=== PATIENT | male | born 1955 | race American Indian/Alaskan Native ===

== ENCOUNTER 2017-01-29 06:03 | Day surgery (SDC) | payer OTHER ==
[2017-01-29] MEDS ORDERED: WATER FOR IRRIG STERILE IR ONE ×2 (07:16→07:24)
[2017-01-29] MEDS ORDERED: WATER FOR IRRIG STERILE ONE (07:16)
--- NOTE | 2017-01-29 07:53 | Anesthesia Day of Surgery ---
Anesthesia Day of Surgery - Day of Surgery Patient Examined: Yes Patient H&P Reviewed: Yes Patient is NPO: Yes
[2017-01-29] MEDS ORDERED: DIPRIVAN 10 MG/ML IV ONE ×4 (07:56)
--- NOTE | 2017-01-29 07:56 | Anesthesia Consultation ---
Anesthesia Consult and Med Hx Date of service: 01/29/17 - Airway Anesthetic Teeth Evaluation: Poor (missing and chipped teeth) ROM Head & Neck: Adequate Mental/Hyoid Distance: Adequate Mallampati Class: Class II Intubation Access Assessment: Probably Good - Pulmonary Exam CTA: Yes - Cardiac Exam Cardiac Exam: RRR - Pre-Operative Health Status ASA Pre-Surgery Classification: ASA4 Proposed Anesthetic Plan: General - Pulmonary Hx Smoking: No Hx Asthma: No (sinus ) Hx Sleep Apnea: No - Cardiovascular System Hx Hypertension: Yes Hx Heart Attack/AMI: No Hx Percutaneous Transluminal Coronary Angioplasty (PTCA): No - Central Nervous System Hx Seizures: No CVA: No Hx Back Pain: Yes (lumbar degenerative disc) Hx Psychiatric Problems: Yes - Gastrointestinal Hx Gastroesophageal Reflux Disease: No - Endocrine Hx Renal Disease: No Hx Cirrhosis: Yes Hx Liver Disease: Yes (liver ca, hep C) Hx Hypothyroidism: No (sp thyroidectomy) - Other Systems Hx Cancer: Yes (liver) Hx Obesity: Yes - Additional Comments Anesthesia Medical History Comments: NAC
[2017-01-29] MEDS ORDERED: NACL 0.9% 1000 ML 1,000 ML IV SCH (08:00)
--- NOTE | 2017-01-29 09:01 | Post Operative Note ---
Pre-op diagnosis: varices screening, screening colonoscopy Post-op diagnosis: other (medium sized esophageal varices s/p banding, gastric erosion, diverticulosis, internal hemorrhoids) Findings: EGD: Grade II (medium sized) esophageal varices without bleeding stigmata s/p 2 bands placed Hiatal hernia Gastric erosion (clean based), and portal hypertensive gastropathy Colonoscopy: fair prep, mild tics, internal hemorrhoids Procedure: EGD with varices banding, colonoscopy Anesthesia: MAC Surgeon: MARGUERITE TOVAR Estimated blood loss: none Pathology: none Condition: stable Disposition: same day
--- NOTE | 2017-01-29 09:20 | Operative Report ---
Operative Report Operative Report: EGD Procedure Note Pre-op diagnosis: cirrhosis, varices screening Post-op diagnosis: grade II esophageal varices s/p banding, portal hypertensive gastropathy, erosive gastropathy Anesthesia: MAC Complications: No immediate complications Estimated blood loss: minimal Procedure: After consent was obtained, the patient was placed in the left lateral decubitis position. The fujinon endoscope was advanced with direct vision and inserted into the mouth and advanced into the 2nd portion of duodenum without difficulty. The patient tolerated the procedure well. The views of the mucosa were good. Findings: There were 2 columns of medium-sized (grade II) esophageal varices without high risk bleeding stigmata. Two bands were placed successfully. There was moderate portal hypertensive gastropathy in the body of the stomach. Small gastric erosion in the antrum of the stomach (clean based). The duodenum appeared normal. Impression: 1. Medium sized esophageal varices s/p banding 2. Moderately severe portal hypertensive gastropathy 3. Small gastric erosion. Recommendations: -follow-up with transplant hepatology as scheduled -okay for clear liquid diet today, advance tomorrow as tolerated
--- NOTE | 2017-01-29 09:23 | Operative Report ---
Operative Report Operative Report: Colonoscopy Procedure Note Pre-op diagnosis: screening colonoscopy Post-op diagnosis: mild diverticulosis, internal hemorrhoids Anesthesia: MAC Complications: No immediate complications Estimated blood loss: None Procedure: After consent was obtained, the patient was placed in the left lateral decubitis position. The fujinon colonoscope was inserted into the rectum with direct vision and advanced to the cecum without difficulty. The patient tolerated the procedure well. The views of the mucosa were fair. The quality of prep was fair/adequate. Findings: There were a few small diverticula scattered throughout the colon. Internal hemorrhoids were seen in retroflexion view. Otherwise, the colon appeared normal Impression: 1. Mild diverticulosis 2. Internal hemorrhoids Recommendations: -high fiber diet daily -repeat colonoscopy in 5 years for screening purposes -follow-up with transplant hepatology
[2017-01-29 09:32] VITALS: BP 138/84
--- NOTE | 2017-01-29 10:00 | Post Anesthesia Evaluation ---
- Post Anesthesia Evaluation Patient Participated: Yes Airway Patent: Yes Stable Respiratory Function: Yes Nausea/Vomiting: No Temp > 96.8F: Yes Pain Manageable: Yes Adequeate Hydration: Yes Anesthesia Complications: No
== END 2017-01-29 06:04 | disposition home or self-care (01) ==
LOC: GIO 06:03
PROVIDERS: ATTEND Internal Medicine Gastroenterology
DX: Z12.11 Encounter for screening for malignant neoplasm of colon (principal); K57.30 Diverticulosis of large intestine without perforation or abscess without bleeding; K64.8 Other hemorrhoids; I85.00 Esophageal varices without bleeding; K76.6 Portal hypertension; K31.89 Other diseases of stomach and duodenum; K25.9 Gastric ulcer, unspecified as acute or chronic, without hemorrhage or perforation; I10 Essential (primary) hypertension; E66.9 Obesity, unspecified; Z87.39 Personal history of other diseases of the musculoskeletal system and connective tissue; Z86.19 Personal history of other infectious and parasitic diseases; Z85.05 Personal history of malignant neoplasm of liver; Z98.890 Other specified postprocedural states
CPT/HCPCS: 43244; 45378; J2704; J7030

== ENCOUNTER 2017-02-24 13:02 | Emergency (ER) | payer OTHER ==
--- NOTE | 2017-02-24 14:26 | Emergency Department Report ---
Entered by MELIZA JARQUIN, acting as scribe for JORDAN SANCHEZ PA. Chief Complaint: Abdominal Pain Stated Complaint: VOMITING/ABD PAIN/DIARRHEA Time Seen by Provider: 02/24/17 14:15 - HPI History of Present Illness: Pt c/o 10/10 lower abdominal pain for 2 days. Reports associated N/V/D. Notes that he cannot see his PCP, Dr. Santosh Hooper, until Friday. Pt also c/o 10/10 low back pain. Patient is unable to describes pain. Patient also states he's out of oxycodone medication and requests a refill. Aggravated with eating and alleviated with nothing. Denies taking any medication for pain. Denies urinary urgency and frequency. Denies chest pain and SOB. PMHx of arthritis, liver cancer, HTN, Hepatitis C (currently taking medication for it) PSHx of thyroid removal - ROS Review of Systems: All system are negative unless stated in HPI above. - Exam Vital Signs: Vital Signs 02/24/17 13:50 Temperature 98.2 F Pulse Rate 79 Respiratory 20 Rate Blood Pressure 169/99 O2 Sat by Pulse 100 Oximetry Physical Exam: General: well nourished, well developed, 62 year old male in no acute distress and nontoxic in appearance Abdomen: Soft, nontender to palpation in all quadrants, normal bowel sounds in all quadrants and negative CVA tenderness bilaterally. No guarding or rebound. MSE screening note: Focused history and physical exam performed. Due to findings the following was ordered: see below ED Medical Decision Making - Medical Decision Making MDM: Patient screened by provider in triage area. Appropriate protocol initiated. Patient to be seen by MD on main ED side. ED Disposition for MSE Condition: Stable This documentation as recorded by the scribe,MELIZA JARQUIN,accurately reflects the service I personally performed and the decisions made by me,JORDAN SANCHEZ PA.
[2017-02-24 15:03] LABS: Basophils % (Auto) 0.4 % (0.0-1.8); Eosinophils % (Auto) 0.3 % (0.0-4.3); Hematocrit 40.3 % (35.5-45.6); Hemoglobin 13.1 gm/dl (11.8-15.2); Mean Corpuscular HGB Conc 33 % (32-34); Mean Corpuscular Hemoglobin 28 pg (28-32); Mean Corpuscular Volume 86 fl (84-94); Red Cell Distribution Width 15.6 % (13.2-15.2); White Blood Count 6.3 K/mm3 (4.5-11.0)
[2017-02-24 15:10] LABS: Bacteria,Urine 1+ /HPF (Negative); Bilirubin,Urine NEG (Negative); Blood,Urine NEG (Negative); Ketones,Urine 20 mg/dL (Negative); Leukocyte Esterase,Urine NEG (Negative); Mucus,Urine 3+ /HPF; Nitrite,Urine NEG (Negative); Urobilinogen,Urine < 2.0 mg/dL (<2.0)
[2017-02-24 15:11] LABS: Alanine Aminotransferase 25 units/L (7-56); Albumin 3.9 g/dL (3.9-5); Albumin/Globulin Ratio 0.7 %; Alkaline Phosphatase 82 units/L (35-129); Anion Gap 20 mmol/L; BUN/Creatinine Ratio 16.25; Blood Urea Nitrogen 13 mg/dL (9-20); Calcium 8.9 mg/dL (8.4-10.2); Carbon Dioxide 21 mmol/L (22-30); Chloride 100.5 mmol/L (98-107); Glucose 122 mg/dL (75-100); Lipase 25 units/L (13-60); Potassium 3.8 mmol/L (3.6-5.0); Sodium 138 mmol/L (137-145); Total Protein 9.2 g/dL (6.3-8.2)
[2017-02-24 15:53] LABS: Platelet Count 90 K/mm3 (140-440)
[2017-02-24] MEDS ORDERED: ZOFRAN IV ONE (20:18)
[2017-02-24] MEDS ORDERED: MORPHINE IV ONE (20:18)
--- NOTE | 2017-02-24 20:18 | Emergency Department Report ---
ED Abdominal Pain HPI - General Chief Complaint: Abdominal Pain Stated Complaint: VOMITING/ABD PAIN/DIARRHEA Time Seen by Provider: 02/24/17 19:19 Source: patient Mode of arrival: Ambulatory Limitations: No Limitations - History of Present Illness Initial Comments: Patient stated that he has history of chronic back pain and abdominal pain. He is diffuse pain medication which is Percocet since Friday he started having some nausea and vomiting he stated that his pain is same no change MD Complaint: abdominal pain -: year(s) Location: diffuse Radiation: back Severity: moderate Severity scale (0 -10): 5 Consistency: constant Improves With: medication Associated Symptoms: nausea, vomiting. denies: diarrhea - Related Data Home Medications Medication Instructions Recorded Confirmed Last Taken ALPRAZolam [Alprazolam] 1 mg PO BID PRN 04/22/13 02/24/17 01/28/17 Amlodipine Besylate/Benazepril 1 cap PO DAILY 04/22/13 02/24/17 01/29/17 [Amlodipine-Benazepril 5-20 mg] Doxazosin Mesylate [Cardura Xl] 4 mg PO DAILY 04/22/13 02/24/17 01/29/17 Fluticasone Propionate [Flovent 50 mcg IH DAILY PRN 04/22/13 02/24/17 04/21/13 Diskus] Furosemide [Furosemide] 40 mg PO DAILY 04/22/13 02/24/17 01/24/17 Lactulose [Lactulose] 1 tsp PO TID 04/22/13 02/24/17 01/26/17 Oxycodone HCl/Acetaminophen 10 - 325 mg PO Q6H PRN 04/22/13 02/24/17 01/28/17 [Oxycodon-Acetaminophen 2.5-325 mg] Rifaximin [Xifaxan] 550 mg PO BID 04/22/13 02/24/17 01/28/17 Spironolactone [Spironolactone] 100 mg PO DAILY 04/22/13 02/24/17 01/26/17 Levothyroxine 200 mg PO DAILY 01/29/17 02/24/17 01/28/17 Previous Rx's Medication Instructions Recorded Last Taken Type Ondansetron [Zofran Odt] 4 mg PO Q4-6H PRN #14 tab.rapdis 02/24/17 Unknown Rx oxyCODONE /ACETAMINOPHEN [Percocet 1 tab PO Q6HR PRN #14 tablet 02/24/17 Unknown Rx 5/325] Allergies Allergy/AdvReac Type Severity Reaction Status Date / Time Penicillins Allergy Severe Hives Verified 04/22/13 07:24 ED Review of Systems ROS: Stated complaint: VOMITING/ABD PAIN/DIARRHEA Other details as noted in HPI Comment: All other systems reviewed and negative Eyes: denies: eye pain ENT: denies: hearing loss Respiratory: denies: cough Cardiovascular: denies: chest pain Gastrointestinal: abdominal pain, nausea, vomiting. denies: diarrhea, constipation Neurological: denies: headache ED Past Medical Hx - Past Medical History Hx Hypertension: Yes Hx Heart Attack/AMI: No Hx Liver Disease: Yes (liver ca, hep C) Hx Renal Disease: No Hx of Cancer: Yes (Liver) Hx Arthritis: Yes (B/L knee) Hx Seizures: No Hx Asthma: No (sinus ) - Surgical History Past Surgical History?: Yes Additional Surgical History: Thyroid removal, hernia repair, achilles tendon - Social History Smoking Status: Never Smoker Substance Use Type: None - Medications Home Medications: Home Medications Medication Instructions Recorded Confirmed Last Taken Type ALPRAZolam [Alprazolam] 1 mg PO BID PRN 04/22/13 02/24/17 01/28/17 History Amlodipine Besylate/Benazepril 1 cap PO DAILY 04/22/13 02/24/17 01/29/17 History [Amlodipine-Benazepril 5-20 mg] Doxazosin Mesylate [Cardura Xl] 4 mg PO DAILY 04/22/13 02/24/17 01/29/17 History Fluticasone Propionate [Flovent 50 mcg IH DAILY PRN 04/22/13 02/24/17 04/21/13 History Diskus] Furosemide [Furosemide] 40 mg PO DAILY 04/22/13 02/24/17 01/24/17 History Lactulose [Lactulose] 1 tsp PO TID 04/22/13 02/24/17 01/26/17 History Oxycodone HCl/Acetaminophen 10 - 325 mg PO Q6H PRN 04/22/13 02/24/17 01/28/17 History [Oxycodon-Acetaminophen 2.5-325 mg] Rifaximin [Xifaxan] 550 mg PO BID 04/22/13 02/24/17 01/28/17 History Spironolactone [Spironolactone] 100 mg PO DAILY 04/22/13 02/24/17 01/26/17 History Levothyroxine 200 mg PO DAILY 01/29/17 02/24/17 01/28/17 History Ondansetron [Zofran Odt] 4 mg PO Q4-6H PRN #14 tab.rapdis 02/24/17 Unknown Rx oxyCODONE /ACETAMINOPHEN [Percocet 1 tab PO Q6HR PRN #14 tablet 02/24/17 Unknown Rx 5/325] ED Physical Exam - General Limitations: No Limitations General appearance: alert - ENT ENT exam: Present: normal exam - Respiratory Respiratory exam: Present: normal lung sounds bilaterally - Cardiovascular Cardiovascular Exam: Present: regular rate, normal heart sounds - GI/Abdominal GI/Abdominal exam: Present: soft. Absent: distended, tenderness, guarding, rebound, rigid, normal bowel sounds - Extremities Exam Extremities exam: Present: normal inspection - Back Exam Back exam: Present: normal inspection - Neurological Exam Neurological exam: Present: alert, oriented X3, CN II-XII intact - Skin Skin exam: Present: warm ED Course Vital Signs 02/24/17 02/24/17 02/24/17 13:50 17:29 17:31 Temperature 98.2 F Pulse Rate 79 107 H 68 Respiratory 20 27 H 21 Rate Blood Pressure 169/99 170/91 O2 Sat by Pulse 100 99 Oximetry 02/24/17 02/24/17 02/24/17 17:32 17:35 17:37 Temperature Pulse Rate 70 70 72 Respiratory 31 H 30 H 13 Rate Blood Pressure 170/91 170/91 170/91 O2 Sat by Pulse 100 99 100 Oximetry 02/24/17 02/24/17 02/24/17 17:39 17:41 17:49 Temperature Pulse Rate 72 72 Respiratory 28 H 17 22 Rate Blood Pressure 170/91 170/91 O2 Sat by Pulse 100 100 100 Oximetry ED Medical Decision Making - Lab Data Result diagrams: 02/24/17 14:32 02/24/17 14:32 Critical care attestation.: If time is entered above; I have spent that time in minutes in the direct care of this critically ill patient, excluding procedure time. ED Disposition Clinical Impression: Abdominal pain Disposition: DC-01 TO HOME OR SELFCARE Is pt being admited?: No Does the pt Need Aspirin: No Condition: Stable Prescriptions: Ondansetron [Zofran Odt] 4 mg PO Q4-6H PRN #14 tab.rapdis PRN Reason: Nausea And Vomiting oxyCODONE /ACETAMINOPHEN [Percocet 5/325] 1 tab PO Q6HR PRN #14 tablet PRN Reason: Pain Referrals: PAIGE BROCK MD [Primary Care Provider] - 3-5 Days
[2017-02-24 20:22] VITALS: BP 186/79
== END 2017-02-24 21:26 | disposition home or self-care (01) ==
LOC: ED 13:02
DX: R10.9 Unspecified abdominal pain (principal); I10 Essential (primary) hypertension; Z85.05 Personal history of malignant neoplasm of liver
CPT/HCPCS: 36415; 80053; 81001; 82962; 83690; 85025; 93005; 93010; 96374; 96375; 99283; J2270; J2405